=== PATIENT | male | born 1975 | race Two or more races ===

== ENCOUNTER 2020-07-26 17:35 | Emergency (ER) | payer SELFPAY ==
[~2020-07-26] VITALS: Ht 172.7 cm; Wt 85.6 kg
[2020-07-26] MEDS ORDERED: DEXAMETHASONE 4 MG TABLET ONE (20:16)
[2020-07-26] MEDS ORDERED: DEXAMETHASONE 1 MG TABLET PO ONE (20:30)
[2020-07-26] MEDS ORDERED: DEXAMETHASONE 4 MG TABLET PO ONE (20:30)
[2020-07-26 20:39] VITALS: BP 135/98
--- NOTE | 2020-07-26 20:41 | NUR ---
Patient d/c from triage. Medicated patient per oct. D/c instructions given. All questions and concerns addressed. Patient ambulatory with a steady gait. Belongings with patient.
== END 2020-07-26 20:52 | disposition home or self-care (01) ==
LOC: ED 20:20
DX: U07.1 COVID-19 (principal); J06.9 Acute upper respiratory infection, unspecified; R06.00 Dyspnea, unspecified; R50.9 Fever, unspecified; R05 Cough; R07.89 Other chest pain; R06.02 Shortness of breath; R43.8 Other disturbances of smell and taste
CPT/HCPCS: 71045; 87635; 93005; 99285